=== PATIENT | male | born 1940 | race African-American/Black ===

== ENCOUNTER 2017-07-19 04:28 | Emergency (ER) | payer OTHER ==
[~2017-07-19] VITALS: Ht 180.3 cm; Wt 81.7 kg
[2017-07-19] MEDS ORDERED: BIOFREEZE118 ML TOP (04:51)
[2017-07-19] MEDS ORDERED: LIPITOR10 MG PO (04:51)
[2017-07-19] MEDS ORDERED: IRON325 PO (04:52)
[2017-07-19] MEDS ORDERED: ESCITALOPRAM OXA5 MG PO (04:52)
[2017-07-19] MEDS ORDERED: FOLIC ACID1 MG PO (04:52)
[2017-07-19] MEDS ORDERED: FLOMAX0.4 MG PO (04:52)
[2017-07-19] MEDS ORDERED: HYDRALAZINE 2525 MG PO (04:53)
[2017-07-19] MEDS ORDERED: XALATAN2.5 ML OPHTHALMIC (04:53)
[2017-07-19] MEDS ORDERED: IMDUR 30 MG TAB30 M1 PO (04:53)
[2017-07-19] MEDS ORDERED: MELATONIN3 MG PO (04:53)
[2017-07-19] MEDS ORDERED: [UNRECOGNIZED DRUG - OTHER] PO (04:54)
[2017-07-19] MEDS ORDERED: MIRALAX17 GM PO (04:54)
[2017-07-19] MEDS ORDERED: NITROSTAT0.4 M1 SUBLING (04:56)
[2017-07-19] MEDS ORDERED: OXYBUTYNIN 5 MG5 M2 PO (04:56)
[2017-07-19] MEDS ORDERED: XIFAXAN550 M1 PO (04:57)
[2017-07-19] MEDS ORDERED: SENOKOT-S TABL1 EACH PO (04:57)
[2017-07-19] MEDS ORDERED: ZANTAC 150MG T150 MG PO (04:57)
[2017-07-19] MEDS ORDERED: VENTOLIN HFA 1818 GM INH (04:58)
[2017-07-19] MEDS ORDERED: TYLENOL325 MG PO (04:58)
[2017-07-19] MEDS ORDERED: ONDANSETRON HCL4 M2 PO (04:59)
[2017-07-19] MEDS ORDERED: TRAMADOL 50 MG50 MG PO (07:02)
== END 2017-07-19 09:19 ==
LOC: ER 04:28
DX: S02.40DA Maxillary fracture, left side, initial encounter for closed fracture (principal); S02.82XA Fracture of other specified skull and facial bones, left side, initial encounter for closed fracture; F17.210 Nicotine dependence, cigarettes, uncomplicated; F10.99 Alcohol use, unspecified with unspecified alcohol-induced disorder; W01.0XXA Fall on same level from slipping, tripping and stumbling without subsequent striking against object, initial encounter; Y93.89 Activity, other specified; Y92.091 Bathroom in other non-institutional residence as the place of occurrence of the external cause; Y99.8 Other external cause status